=== PATIENT | male | born 1950 | race Caucasian/White ===

== ENCOUNTER 2019-06-05 05:44 | Day surgery (SDC) | payer MEDICARE ==
[2019-06-04 11:56] LABS: BASOPHILS % (AUTO) 0.9 % (0-1); EOSINOPHILS # (AUTO) 0.1 X10'3 (0-0.9); EOSINOPHILS % (AUTO) 2.3 % (0-6); HEMOGLOBIN 13.4 g/dl (14.0-17.9); LYMPHOCYTES # (AUTO) 1.7 X10'3 (1.1-4.8); MEAN CORPUSCULAR HEMOGLOBIN 30.4 PG (27.0-31.0); MEAN CORPUSCULAR HGB CONC 32.8 g/dL (33.0-36.5); MEAN CORPUSCULAR VOLUME 92.7 FL (78-98); MEAN PLATELET VOLUME 7.6 FL (7.4-10.4); MONOCYTES # (AUTO) 0.5 X10'3 (0-0.9); MONOCYTES % (AUTO) 8.4 % (2-12); NEUTROPHILS # (AUTO) 3.2 X10'3 (1.8-7.7); NEUTROPHILS % (AUTO) 57.4 % (42-75); PLATELET COUNT 225 X10'3 (140-440); RED BLOOD COUNT 4.42 X10'6 (4.70-6.10); RED CELL DISTRIBUTION WIDTH 14.1 % (11.5-14.5); WHITE BLOOD COUNT 5.5 X10'3 (4.5-11.0)
[2019-06-04 12:07] LABS: ALBUMIN 3.8 G/DL (3.4-5.0); ANION GAP 9 (8-16); BLOOD UREA NITROGEN 16 MG/DL (7-18); BUN/CREATININE RATIO 12.4 (5.4-32.0); CALCIUM 8.8 MG/DL (8.5-10.1); CHLORIDE 107 MMOL/L (99-107); CREATININE 1.29 MG/DL (0.60-1.10); GLUCOSE 115 MG/DL (70-104); POTASSIUM 4.3 MMOL/L (3.5-5.1); SODIUM 144 MMOL/L (135-145); TOTAL CARBON DIOXIDE 27.6 MMOL/L (24-32); eGFR 55 ML/MIN
[2019-06-04 12:08] LABS: PARTIAL THROMBOPLASTIN TIME 25 SECONDS (22-32)
[~2019-06-05] VITALS: Ht 172.7 cm; Wt 92.4 kg
[2019-06-05] VITALS (11 sets, daily range): BP systolic 105–155; BP diastolic 65–95
[2019-06-05] MEDS ORDERED: normal saline 1,000 ML IV SCH ×2 (06:00→09:55)
[2019-06-05] MEDS ORDERED: LIDOcaine/PRILOcaine 5gm cream TP ONE ×2 (06:00→06:20)
[2019-06-05] MEDS ORDERED: LORazepam 0.5 MG tablet PO PRN (06:00)
[2019-06-05] MEDS ORDERED: diphenhydrAMINE 25mg capsule PO PRN (06:00)
[2019-06-05] MEDS ORDERED: sodium bicarbonate (8.4%) inj. 75 ML in dextrose 5% water 500ml 500 ML IV SCH (06:05)
--- NOTE | 2019-06-05 06:16 | NUR ---
called to verify medication aggrenox taken this am. states "that's fine".
[2019-06-05] MEDS ORDERED: LISI-600 PO (06:26)
[2019-06-05] MEDS ORDERED: ASPI1CPM9 PO (06:26)
[2019-06-05] MEDS ORDERED: ATOR40TA PO (06:26)
[2019-06-05] MEDS ORDERED: verapamil 2.5 mg/ml inj IV ONE (07:22)
[2019-06-05] MEDS ORDERED: iohexol 350MG/ML 100ml bottle IV ONE ×2 (07:23→08:36)
[2019-06-05] MEDS ORDERED: midazolam 2 mg/2 ml injection ONE (07:23)
[2019-06-05] MEDS ORDERED: heparin 1,000unit/ml 10ml vial 10 ML ONE (07:23)
[2019-06-05] MEDS ORDERED: iohexol 350 MG/ML 50ML vial IV ONE (07:23)
[2019-06-05] MEDS ORDERED: nitroGLYCERIN-Tridil 50MG/D5W 250 ML IV ONE (07:23)
[2019-06-05] MEDS ORDERED: LIDOcaine 1% 30ml preserv. free vial ONE (07:23)
[2019-06-05] MEDS ORDERED: fentaNYL/PF 50MCG/1 ML 2ML syringe ONE (07:23)
[2019-06-05] MEDS ORDERED: ondansetron/PF 4mg/2ml inj IV PRN (10:20)
[2019-06-05] MEDS ORDERED: HYDROcodone/acetaminophen 5mg/325mg tablet PO PRN (10:20)
[2019-06-05] MEDS ORDERED: HYDROcodone/acetaminophen 10/325mg tab PO PRN (10:20)
--- NOTE | 2019-06-05 10:43 | NUR ---
SODIUM BICARB FINISHED NOW. MEDICATION WAS STARTED IN THE DEMO COORDINATOR. 500ML INTAKE TOTAL. PT NOW HAS NS RUNNING AT 100 PER ORDER. ADMINISTERED PAIN MEDICATION ORDERED. PT RESTING, EYES CLOSED, EVEN RESPIRATIONS. SITE STABLE, DRSG, CD&I. VS STABLE CHARTED.
== END 2019-06-05 15:10 | disposition home or self-care (01) ==
LOC: SSTAY O 05:44
PROVIDERS: ATTEND Internal Medicine Cardiovascular Disease
DX: R94.39 Abnormal result of other cardiovascular function study (principal); I25.10 Atherosclerotic heart disease of native coronary artery without angina pectoris; I10 Essential (primary) hypertension; E78.5 Hyperlipidemia, unspecified; I25.2 Old myocardial infarction; Z86.73 Personal history of transient ischemic attack (TIA), and cerebral infarction without residual deficits; Z95.1 Presence of aortocoronary bypass graft; Z88.0 Allergy status to penicillin; Z87.891 Personal history of nicotine dependence; Z79.899 Other long term (current) drug therapy; Z79.01 Long term (current) use of anticoagulants
CPT/HCPCS: 36415; 80048; 85025; 85610; 85730; 93005; 93459; 99152; 99153; C1760; C1769; C1894; J1644; J2001; J2250; J2405; J3010; J7030; Q0163; Q9967; A4620; A6258; J3490

== ENCOUNTER 2023-02-15 15:20 | Emergency (ER) | payer MEDICARE ==
[~2023-02-15] VITALS: Ht 172.7 cm; Wt 89.5 kg
[~2023-02-15 15:20] MED LIST: ASPI1CPM9 PO; ATOR40TA PO; LISI20TA28 PO
[2023-02-15 15:27] VITALS: BP 170/80
[2023-02-15 17:43] LABS: BASOPHILS # (AUTO) 0.1 X10'3 (0-0.2); BASOPHILS % (AUTO) 1.1 % (0-1); EOSINOPHILS # (AUTO) 0.1 X10'3 (0-0.9); EOSINOPHILS % (AUTO) 2.1 % (0-6); HEMATOCRIT 40.2 % (42.0-52.0); LYMPHOCYTES # (AUTO) 1.6 X10'3 (1.1-4.8); LYMPHOCYTES % (AUTO) 28.8 % (21-51); MEAN CORPUSCULAR HEMOGLOBIN 28.9 PG (27.0-31.0); MEAN CORPUSCULAR HGB CONC 32.3 g/dL (33.0-36.5); MEAN CORPUSCULAR VOLUME 89.2 FL (78-98); MEAN PLATELET VOLUME 7.7 FL (7.4-10.4); MONOCYTES # (AUTO) 0.6 X10'3 (0-0.9); MONOCYTES % (AUTO) 10.3 % (2-12); NEUTROPHILS # (AUTO) 3.1 X10'3 (1.8-7.7); NEUTROPHILS % (AUTO) 57.7 % (42-75); PLATELET COUNT 217 X10'3 (140-440); RED BLOOD COUNT 4.51 X10'6 (4.70-6.10); RED CELL DISTRIBUTION WIDTH 14.4 % (11.5-14.5); WHITE BLOOD COUNT 5.4 X10'3 (4.5-11.0)
[2023-02-15 18:03] LABS: ALANINE AMINOTRANSFERASE 21 U/L (12-78); ALBUMIN 3.6 G/DL (3.4-5.0); ALBUMIN/GLOBULIN RATIO 1.3 (1.1-1.5); ALKALINE PHOSPHATASE 55 IU/L (46-116); ANION GAP 7 (8-16); ASPARTATE AMINO TRANSFERASE 15 U/L (10-37); BILIRUBIN,TOTAL 0.3 MG/DL (0.1-1.0); BLOOD UREA NITROGEN 24 MG/DL (7-18); BUN/CREATININE RATIO 16.4 (10.0-20.0); CALCIUM 8.8 MG/DL (8.5-10.1); CHLORIDE 109 MMOL/L (99-107); CREATININE 1.46 MG/DL (0.60-1.10); GLUCOSE 83 MG/DL (70-104); SODIUM 144 MMOL/L (135-145); TOTAL CARBON DIOXIDE 27.8 MMOL/L (24-32); TOTAL PROTEIN 6.4 G/DL (6.4-8.2); eGFR 47 ML/MIN
[2023-02-15] MEDS ORDERED: acetaminophen 325mg tablet PO ONE (18:10)
== END 2023-02-15 19:47 | disposition home or self-care (01) ==
LOC: ER 15:20
DX: M62.830 Muscle spasm of back (principal); M54.6 Pain in thoracic spine; Z88.0 Allergy status to penicillin
CPT/HCPCS: 36415; 71045; 80053; 83880; 84484; 85025; 93005; 99285

== ENCOUNTER 2024-03-15 10:14 | Day surgery (SDC) | payer MEDICARE ==
[2024-03-01 11:51] LABS: EOSINOPHILS # (AUTO) 0.1 X10'3 (0-0.9); MEAN CORPUSCULAR HGB CONC 32.9 g/dL (33.0-36.5); MONOCYTES # (AUTO) 0.5 X10'3 (0-0.9); PRE OP HEMOGLOBIN 13.4 g/dL (14.0-17.9)
[2024-03-01 11:53] LABS: BASOPHILS # (AUTO) 0.1 X10'3 (0-0.2); BASOPHILS % (AUTO) 1.2 % (0-1); EOSINOPHILS % (AUTO) 2.2 % (0-6); LYMPHOCYTES # (AUTO) 1.6 X10'3 (1.1-4.8); LYMPHOCYTES % (AUTO) 28.4 % (21-51); MEAN CORPUSCULAR HEMOGLOBIN 29.7 PG (27.0-31.0); MEAN CORPUSCULAR VOLUME 90.1 FL (78-98); MEAN PLATELET VOLUME 7.8 FL (7.4-10.4); MONOCYTES % (AUTO) 9.1 % (2-12); NEUTROPHILS # (AUTO) 3.3 X10'3 (1.8-7.7); NEUTROPHILS % (AUTO) 59.1 % (42-75); PRE OP HEMATOCRIT 40.6 % (42.0-52.0); PRE OP PLATELET COUNT 210 X10'3 (140-440); PRE OP WHITE BLOOD COUNT 5.5 10'3 (4.8-10.8); RED CELL DISTRIBUTION WIDTH 14.4 % (11.5-14.5)
[2024-03-01 12:13] LABS: ALBUMIN 3.6 G/DL (3.4-5.0); ALBUMIN/GLOBULIN RATIO 1.2 (1.1-1.5); ALKALINE PHOSPHATASE 58 IU/L (46-116); BLOOD UREA NITROGEN 23 MG/DL (7-18); BUN/CREATININE RATIO 15.9 (10.0-20.0); CALCIUM 8.8 MG/DL (8.5-10.1); CHLORIDE 109 MMOL/L (99-107); CREATININE 1.45 MG/DL (0.60-1.10); PRE OP ALT 31 U/L (30-65); PRE OP ANION GAP 6 (8-16); PRE OP AST 11 U/L (10-37); PRE OP BILIRUB, TOTAL 0.4 MG/DL (0.0-1.0); PRE OP GLUCOSE 99 MG/DL (70-104); PRE OP POTASSIUM 4.2 MMOL/L (3.4-5.1); PRE OP SODIUM 143 MMOL/L (135-145); TOTAL CARBON DIOXIDE 28.3 MMOL/L (24-32); TOTAL PROTEIN 6.7 G/DL (6.4-8.2); eGFR 48 ML/MIN
[~2024-03-15] VITALS: Ht 172.7 cm; Wt 91.4 kg
[2024-03-15] VITALS (22 sets, daily range): BP systolic 131–174; BP diastolic 62–127; PULSE 45–94; RESP 13–19; TEMP 97.2–99.2; O2SAT 94–98
[2024-03-15] MEDS: famotidine 20mg tablet PO ONE (05:30)
[2024-03-15] MEDS: vancomycin/NS 1 GM in NS 250 ML IV ONE (05:30)
[2024-03-15] MEDS: DOCUMENT DATE & TIME OF BETA-BLOCKER PO ONE (05:30)
[2024-03-15] MEDS: tranexamic acid 650mg tablet PO ONE (05:30)
[2024-03-15] MEDS: ringers solution, lacted 1,000 ML IV SCH ×2 (05:30→19:32)
[2024-03-15] MEDS: cefazolin 2gm/D5W 100mL 100 ML IV ONE (05:30)
[2024-03-15] MEDS: BUPIVACAINE/MELOXICAM 14 ML VIAL IL ONE (09:27)
[~2024-03-15 10:14] MED LIST changes: +ACET-812 PO; -ASPI1CPM9 PO; +ASPI81TA52 PO; +CLOP75TA34 PO; -LISI20TA28 PO; +LISI40TA13 PO; +METO-395 PO
[2024-03-15] MEDS: ROPIVAcaine 0.5% (5mg/ml) 30ml vial ONE (14:45)
[2024-03-15] MEDS: ketorolac trometh. 30mg/ml inj. ONE (14:45)
[2024-03-15] MEDS ORDERED: fentaNYL/PF 50MCG/1 ML 2ML syringe ONE (15:13)
[2024-03-15] MEDS ORDERED: ondansetron/PF 4mg/2ml inj IV PRN ×2 (16:15→18:20)
[2024-03-15] MEDS ORDERED: fentaNYL/PF 50MCG/1 ML 2ML syringe IV PRN ×2 (16:15)
[2024-03-15] MEDS ORDERED: labetalol 20mg/4ml (5mg/ml) syringe IV PRN (16:15)
[2024-03-15] MEDS ORDERED: morphine 2 MG/ML inj. syringe IV PRN (16:15)
[2024-03-15] MEDS ORDERED: morphine 4 MG/ML inj SYRINge IV PRN (16:15)
[2024-03-15] MEDS: BUPIVACAINE/MELOXICAM 7 ML VIAL IL ONE (17:52)
[2024-03-15] MEDS ORDERED: HYDROmorphone 1 mg/ml syringe IV PRN (18:20)
[2024-03-15] MEDS ORDERED: bisacodyl 10mg suppository rectal RC PRN (18:20)
[2024-03-15] MEDS ORDERED: naloxone 0.4 mg/ml inj IV PRN (18:20)
[2024-03-15] MEDS ORDERED: diphenhydrAMINE 25mg capsule PO PRN ×2 (18:20)
[2024-03-15] MEDS ORDERED: magnesium hydroxide 30ml (MOM) UD suspension PO PRN (18:20)
[2024-03-15] MEDS ORDERED: HYDROmorphone inj. 0.5 MG/0.5 ML DISP.SYRIN IV PRN (18:20)
[2024-03-15] MEDS ORDERED: acetaminophen 325mg tablet PO PRN (18:20)
[2024-03-15] MEDS: hydrALAZINE 20mg/ml inj. IV PRN (19:38)
[2024-03-15] MEDS ORDERED: non-formulary drug (Acetaminophen (Tylenol Extra Strength) 2 TABLET) PO SCH (20:00)
[2024-03-15] MEDS: acetaminophen 325mg tablet PO SCH (20:09)
[2024-03-15] MEDS: oxyCODONE IR 5mg (immed. release) tablet PO PRN (20:09)
[2024-03-15] MEDS: potassium cl 20mEq in 1/2 NS 1,000 ML IV SCH (20:30)
[2024-03-15] MEDS: sennosides 8.6mg tablet PO SCH (21:00)
[2024-03-15] MEDS: vancomycin/NS 1 GM ADD-VANTAGE 250 ML IV SCH (21:48)
[2024-03-16] MEDS: oxyCODONE IR 5mg (immed. release) tablet PO PRN (00:23)
[2024-03-16] MEDS: ceFAZolin/D5W- 1GM premix 50 ML IV SCH (00:24)
[2024-03-16 02:00] VITALS: BP 125/72; PULSE 52; RESP 16; TEMP 97.6; O2SAT 95
[2024-03-16 06:40] VITALS: BP 110/77; PULSE 45; RESP 16; TEMP 98.2; O2SAT 96
[2024-03-16 07:44] LABS: BASOPHILS % (AUTO) 0.2 % (0-1); EOSINOPHILS % (AUTO) 0 % (0-6); HEMATOCRIT 37.1 % (42.0-52.0); HEMOGLOBIN 12.1 g/dl (14.0-17.9); LYMPHOCYTES # (AUTO) 0.7 X10'3 (1.1-4.8); LYMPHOCYTES % (AUTO) 7.1 % (21-51); MEAN CORPUSCULAR HEMOGLOBIN 29.3 PG (27.0-31.0); MEAN CORPUSCULAR HGB CONC 32.7 g/dL (33.0-36.5); MEAN CORPUSCULAR VOLUME 89.6 FL (78-98); MEAN PLATELET VOLUME 8.1 FL (7.4-10.4); MONOCYTES # (AUTO) 0.5 X10'3 (0-0.9); MONOCYTES % (AUTO) 5.4 % (2-12); NEUTROPHILS # (AUTO) 8.1 X10'3 (1.8-7.7); NEUTROPHILS % (AUTO) 87.3 % (42-75); PLATELET COUNT 193 X10'3 (140-440); RED BLOOD COUNT 4.14 X10'6 (4.70-6.10); RED CELL DISTRIBUTION WIDTH 13.9 % (11.5-14.5); WHITE BLOOD COUNT 9.3 X10'3 (4.5-11.0)
[2024-03-16] MEDS: clopidogrel 75mg tablet PO SCH (07:50)
[2024-03-16] MEDS: atorvastatin 20mg tablet PO SCH (07:50)
[2024-03-16] MEDS: aspirin 325mg tablet PO SCH (07:51)
[2024-03-16] MEDS: lisinopril 20mg tablet PO SCH (07:52)
[2024-03-16 07:55] LABS: ANION GAP 8 (8-16); CHLORIDE 106 MMOL/L (99-107); POTASSIUM 4.1 MMOL/L (3.5-5.1); SODIUM 139 MMOL/L (135-145); TOTAL CARBON DIOXIDE 25.3 MMOL/L (24-32)
[2024-03-16 08:00] VITALS: RESP 18
[2024-03-16] MEDS: metoprolol succinate 25mg (24-HOUR) SR. Tablet PO SCH (08:00)
[2024-03-16 10:00] VITALS: BP 162/74; PULSE 50; RESP 20; TEMP 97.3; O2SAT 97
[2024-03-16] MEDS ORDERED: celeCOXIB 100mg capsule PO SCH (20:00)
[2024-03-17] MEDS ORDERED: acetaminophen 325mg tablet PO PRN (18:20)
== END 2024-03-16 14:16 | disposition home or self-care (01) ==
LOC: PAS 10:14 → ORTHO 4S 19:10 → PAS 03-16 14:16
PROVIDERS: ATTEND Orthopaedic Surgery
DX: M17.11 Unilateral primary osteoarthritis, right knee (principal); G89.18 Other acute postprocedural pain; I44.7 Left bundle-branch block, unspecified; I10 Essential (primary) hypertension; I25.10 Atherosclerotic heart disease of native coronary artery without angina pectoris; E78.5 Hyperlipidemia, unspecified; I25.2 Old myocardial infarction; M19.90 Unspecified osteoarthritis, unspecified site; Z87.891 Personal history of nicotine dependence; Z86.73 Personal history of transient ischemic attack (TIA), and cerebral infarction without residual deficits; Z79.02 Long term (current) use of antithrombotics/antiplatelets; Z79.82 Long term (current) use of aspirin; Z79.899 Other long term (current) drug therapy; Z95.1 Presence of aortocoronary bypass graft; Z98.41 Cataract extraction status, right eye; Z98.42 Cataract extraction status, left eye; Z98.890 Other specified postprocedural states; Z88.0 Allergy status to penicillin
CPT/HCPCS: 20985; 27447; 36415; 64447; 80051; 80053; 82948; 85025; 87081; 93005; 97116; 97161; 97530; A4215; A7000; C1776; J0360; J0690; J2250; J3010; J3370; J7030; J7120; S2900; Z7506; Z7508; Z7512; Z7610; G0378; J1885; J2795